=== PATIENT | male | born 1970 | race Caucasian/White ===

== ENCOUNTER 2018-03-22 20:38 | Emergency (ER) | payer MEDICARE, MEDICAID ==
[~2018-03-22] VITALS: Ht 165.1 cm; Wt 49.9 kg
[2018-03-22 20:45] VITALS: BP 139/82
[2018-03-22] MEDS ORDERED: BACITRACIN OINT 500 UNITS/GM PKT TP ONE (21:05)
[2018-03-22] MEDS ORDERED: BACL10TA4 PO (21:06)
[2018-03-22] MEDS ORDERED: MULT15LI1 GT/PO (21:06)
[2018-03-22] MEDS ORDERED: CHOL400T7 PO (21:06)
[2018-03-22] MEDS ORDERED: VALP250S5 PO (21:06)
[2018-03-22] MEDS ORDERED: FERR325E14 PO (21:06)
[2018-03-22] MEDS ORDERED: FLUO10CA21 PO (21:06)
[2018-03-22] MEDS ORDERED: SIMV40TA5 PO (21:06)
[2018-03-22] MEDS ORDERED: VALP250S20 PO (21:06)
[2018-03-22 23:58] VITALS: BP 122/79
== END 2018-03-22 23:58 | disposition home or self-care (01) ==
LOC: MED 20:38
DX: S00.81XA Abrasion of other part of head, initial encounter (principal); Z79.899 Other long term (current) drug therapy; W19.XXXA Unspecified fall, initial encounter; Y93.89 Activity, other specified; Y92.89 Other specified places as the place of occurrence of the external cause; Y99.8 Other external cause status
CPT/HCPCS: 70450; 72125; 99284

== ENCOUNTER 2018-11-17 08:24 | Emergency (ER) | payer MEDICARE, MEDICAID ==
[~2018-11-17] VITALS: Ht 157.5 cm; Wt 59.0 kg
[~2018-11-17 08:24] MED LIST: BACL10TA4 PO; CHOL400T7 PO; FERR325E14 PO; FLUO10CA21 PO; MULT15LI1 GT/PO; SIMV40TA5 PO; VALP250S20 PO; VALP250S5 PO
--- NOTE | 2018-11-17 08:24 | NUR ---
Patient BIBA BLS accompanied by [place] [employer], transferred to bed 5. RN evaluating patient at bedside.
[2018-11-17 08:25] VITALS: BP 149/95
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
--- NOTE | 2018-11-17 08:35 | NUR ---
Dr. Randall evaluating patient at bedside.
[2018-11-17 08:58] LABS: BASOPHILS % (AUTO) 0.5 % (0.0-2.0); EOSINOPHILS # (AUTO) 0.1 K/uL (0-0.4); EOSINOPHILS % (AUTO) 2.4 % (0.0-4.0); HEMATOCRIT 50.4 % (36-52); HEMOGLOBIN 17.1 g/dL (12.0-18.0); LYMPHOCYTES # (AUTO) 0.7 K/uL (2.0-11.5); LYMPHOCYTES % (AUTO) 11.9 % (20.5-51.1); MEAN CORPUSCULAR HEMOGLOBIN 30 pg (27-31); MEAN CORPUSCULAR HGB CONC 34 g/dL (33-37); MEAN CORPUSCULAR VOLUME 87.7 fL (80-94); MONOCYTES # (AUTO) 0.5 K/uL (0.8-1.0); MONOCYTES % (AUTO) 8.4 % (1.7-9.3); NEUTROPHILS # (AUTO) 4.5 K/uL (1.8-7.7); NEUTROPHILS % (AUTO) 76.8 % (42.2-75.2); PLATELET COUNT (AUTO) 134 K/uL (140-450); RED BLOOD CELL COUNT(AUTO) 5.74 MIL/uL (4.20-6.10); RED CELL DISTRIBUTION WIDTH 13.5 % (11.6-13.7); WHITE BLOOD COUNT (AUTO) 5.8 K/uL (4.8-10.8)
[2018-11-17 09:01] LABS: ANION GAP 12.4 (8-16); CARBON DIOXIDE 30.1 mmol/L (21-32); CHLORIDE 106 mmol/L (98-107); CREATININE 0.7 mg/dL (0.7-1.3); GFR ARICAN-AMERICAN 155 mL/min (>90); GLUCOSE 89 mg/dL (74-106); POTASSIUM 4.5 mmol/L (3.5-5.1); SODIUM SERUM 144 mmol/L (136-145); UREA NITROGEN, BLOOD 15 mg/dL (7-18)
[2018-11-17 09:07] LABS: ALBUMIN 3.3 g/dL (3.4-5.0); ASPARTATE AMINOTRANSFERASE 30 U/L (15-37); TOTAL BILIRUBIN 0.3 mg/dL (0.0-1.0)
--- NOTE | 2018-11-17 10:30 | NUR ---
TALKED WITH ROB AT [facility] REGARDING PLACEMENT, SHE WILL LOOK FOR PLACEMENT WITHIN [facility]. PH # TO FAX HOLD AND MR [phone]. ROB'S PH# [phone].
--- NOTE | 2018-11-17 11:34 | NUR ---
CALLED [facility] STAFF SP. GAVE THE NAME OF YANELY [employer] TESS [phone]. INFORMED HER LEFT THE VOICE MAIL. WILL CALL BACK WHEN THERE IS BED AVAILABLE.
--- NOTE | 2018-11-17 12:03 | NUR ---
[facility] CALLED AND WILL CALL BACK WITH ARRANGEMENT FOR TRANSFER TO [facility] TRANSFER
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
--- NOTE | 2018-11-17 12:37 | NUR ---
PT WITH [facility]. FINISHED HIS LUNH. WAITING FOR THE BED AT [facility]. CALM, COOPERATIVE. LYING COMFORTABLY IN HIS BED.
--- NOTE | 2018-11-17 13:22 | NUR ---
[facility] at bedside.
--- NOTE | 2018-11-17 13:28 | NUR ---
PT LEFT WITH [facility].
--- NOTE | 2018-11-17 13:29 | NUR ---
Patient to be transferred to [facility]. Is being transferred due to CONTINUED LEVEL OF CARE. Receiving facility has accepting physician and available space. ER physician has signed transfer form. Patient or responsible republican has agreed to transfer and signed form. Patient belongings inventoried and will be sent with patient. Copy of nursing notes, lab reports, EKG, Physicians Orders and X-rays to be sent with patient. Report called to SP at receiving facility. [facility] ambulance service has been called for transfer.
[2018-11-17 13:30] VITALS: BP 116/60
[2018-11-18 06:12] LABS: HEPATITIS B SURFACE ANTIGEN Negative (Negative)
== END 2018-11-17 13:29 | disposition short-term general hospital (02) ==
LOC: MED 08:24
DX: F29 Unspecified psychosis not due to a substance or known physiological condition (principal); F41.9 Anxiety disorder, unspecified; Z79.899 Other long term (current) drug therapy
CPT/HCPCS: 36415; 80053; 85025; 86592; 86702; 86803; 87340; 99285; G0482